=== PATIENT | female | born 1990 | race Caucasian/White ===

== ENCOUNTER → 2021-10-31 16:38 | Observation (INO) ==
[2021-10-31 13:57] LABS: Basophils % 0.4 %; Eosinophils # 0.2 K/mcL (0.0-0.6); Eosinophils % 1.8 %; Hematocrit 33.4 % (35.3-44.9); Hemoglobin 11.3 g/dL (11.5-15.4); Lymphocytes # 1.5 K/mcL (0.6-4.6); Lymphocytes % 13.8 %; Mean Corpuscular HGB Conc 33.8 g/dL (31.6-35.5); Mean Corpuscular Hemoglobin 29.9 pg (28.0-33.3); Mean Corpuscular Volume 88.4 fL (83.0-100.0); Mean Platelet Volume 9.8 fL (9.4-12.4); Monocytes # 1.1 K/mcL (0.0-1.3); Monocytes % 10.7 %; Neutrophils # 7.7 K/mcL (1.6-8.9); Platelet Count 222 K/mcL (140-400); Red Blood Count 3.78 M/mcL (3.82-4.97); Segmented Neutrophils % 72.3 %; White Blood Count 10.6 K/mcL (4.3-11.1)
[2021-10-31 14:22] LABS: Protein/Creatinine Ratio,Urine 0.11 mg/mg (0.00-0.20)
[2021-10-31 14:27] LABS: Bilirubin,Urine Negative (Negative); Blood,Urine Negative (Negative); Clarity,Urine Clear (Clear); Color,Urine Yellow (Yellow); Glucose,Urine (UA) Normal (Normal); Ketones,Urine Negative (Negative); Leukocyte Esterase,Urine Moderate (Negative); Nitrite,Urine Negative (Negative); Protein,Urine Negative (Neg-Trace); Specific Gravity,Urine 1.015 (1.010-1.025); Urobilinogen,Urine Normal (Normal)
[2021-10-31 14:31] LABS: Bacteria,Urine Moderate per hpf (None-Few); Mucus,Urine Few per lpf (None-Few); RBC,Urine 0-3 per hpf (0-3); Squamous Epithelial Cell,Urine Few per hpf (None-Few)
[2021-10-31 14:35] LABS: Alanine Aminotransferase 14 Units/L (7-52); Aspartate Amino Transferase 14 Units/L (13-39); BUN/Creatinine Ratio 17 (6-26); Blood Urea Nitrogen 9 mg/dL (6-20); Lactate Dehydrogenase 144 Units/L (140-271); Uric Acid 5.4 mg/dL (2.3-7.6); eGFR For African Americans > 60 (> 60); eGFR For Non-African Americans > 60 (> 60)
== END | disposition home or self-care (01) ==
LOC: 1NENULAB
PROVIDERS: ADMIT Registered Nurse; ATTEND Registered Nurse

== ENCOUNTER 2021-11-14 20:08 | Inpatient (IN) ==
[2021-11-14 18:58] LABS: Basophils % 0.3 %; Eosinophils # 0.2 K/mcL (0.0-0.6); Eosinophils % 1.9 %; Hematocrit 35.6 % (35.3-44.9); Hemoglobin 12.1 g/dL (11.5-15.4); Lymphocytes # 1.7 K/mcL (0.6-4.6); Lymphocytes % 14.5 %; Mean Corpuscular Hemoglobin 30.2 pg (28.0-33.3); Mean Corpuscular Volume 88.8 fL (83.0-100.0); Mean Platelet Volume 10.7 fL (9.4-12.4); Monocytes # 1.1 K/mcL (0.0-1.3); Monocytes % 9.7 %; Neutrophils # 8.3 K/mcL (1.6-8.9); Platelet Count 195 K/mcL (140-400); Red Blood Count 4.01 M/mcL (3.82-4.97); Red Cell Distribution Width 15.2 % (11.5-14.5); Segmented Neutrophils % 72.6 %; White Blood Count 11.4 K/mcL (4.3-11.1)
[2021-11-14 19:06] LABS: Protein/Creatinine Ratio,Urine 0.14 mg/mg (0.00-0.20)
[2021-11-14 19:17] LABS: Alanine Aminotransferase 12 Units/L (7-52); Aspartate Amino Transferase 13 Units/L (13-39); BUN/Creatinine Ratio 15 (6-26); Blood Urea Nitrogen 10 mg/dL (6-20); Lactate Dehydrogenase 145 Units/L (140-271); Uric Acid 5.7 mg/dL (2.3-7.6)
[~2021-11-14 20:08] MED LIST: *HR* Labetalol 20 MG/4 ML SYRINGE IVP ONE; *HR* Labetalol 20 MG/4 ML SYRINGE IVP PRN; Azithromycin 500 MG in 0.9 % Sodium Chloride 250 ML IVPB PRN; Calcium Gluconate 1,000 MG/10 ML VIAL IVP PRN; Famotidine 20 MG/2 ML VIAL IVP PRN; Metoclopramide 10 MG/2 ML VIAL IVP PRN; Naloxone 0.4 MG/ML INJ IVP PRN; Ondansetron 4 MG/2 ML VIAL IVP PRN; Penicillin G Potassium 2,500,000 UNIT/105 ML MLS IVPB SCH; Penicillin G Potassium 5,000,000 UNIT in 0.9 % Sodium Chloride Mini Bag 100 ML IVPB ONE
[2021-11-14] MEDS ORDERED: Magnesium Sulf 20 gm/SW 500mL 4 GM/100 ML BAG IV ONE (20:14)
[2021-11-14] MEDS ORDERED: Magnesium Sulf 20 gm/SW 500mL 20 GM/500 ML IV.SOLN IVC SCH (20:15)
[2021-11-14] MEDS ORDERED: Ringers Solution, Lactated 1,000 ML IVC SCH (20:15)
[2021-11-14] MEDS ORDERED: Oxytocin 30 UNIT/503 ML BAG IVC SCH (21:45)
[2021-11-14] MEDS ORDERED: Ropivacaine/PF 0.2% 20 ML VIAL EP ONE (22:19)
[2021-11-14] MEDS ORDERED: EPHEDrine 50 MG/ML VIAL IVP PRN (22:19)
[2021-11-14] MEDS ORDERED: *HR* FentaNYL (PF) 100 MCG/2 ML VIAL EP ONE (22:19)
[2021-11-14] MEDS ORDERED: Epidural Premix (fent/bupiv) 110 ML EP SCH (22:30)
[2021-11-14] MEDS ORDERED: *HR* Nalbuphine 10 MG/ML AMPUL IV PRN (23:24)
[2021-11-14] MEDS ORDERED: *HR* Nalbuphine 10 MG/ML AMPUL ONE (23:28)
[2021-11-15] MEDS ORDERED: *HR* FentaNYL (PF) 100 MCG/2 ML VIAL ONE (07:02)
[2021-11-15] MEDS ORDERED: Ringers Solution, Lactated 1,000 ML IVC ONE (07:11)
[2021-11-15] MEDS ORDERED: miSOPROStoL 100 MCG TABLET PO ONE ×3 (10:02→13:00)
[2021-11-15] MEDS ORDERED: miSOPROStoL 100 MCG TABLET PO STA (13:00)
[2021-11-15] MEDS ORDERED: Benzocaine/Menthol 56 GM AEROSOL SPRAY TP PRN (14:47)
[2021-11-15] MEDS ORDERED: Rho Immune Globulin 1,500 UNIT SYRINGE IM PRN (14:47)
[2021-11-15] MEDS ORDERED: Oxytocin 30 UNIT/503 ML BAG IVC SCH (14:47)
[2021-11-15] MEDS ORDERED: Ondansetron ODT 4 MG TAB.RAPDIS SL PRN (14:47)
[2021-11-15] MEDS: Ibuprofen 600 MG TABLET PO SCH ×2 (15:17→21:31)
[2021-11-15] MEDS: Acetaminophen 325 MG TABLET PO SCH ×2 (15:17→21:31)
[2021-11-15] MEDS: Magnesium Sulf 20 gm/SW 500mL 20 GM/500 ML IV.SOLN IVC SCH (15:37)
[2021-11-15] MEDS ORDERED: Ringers Solution, Lactated 1,000 ML ONE (17:13)
[2021-11-15] MEDS ORDERED: Calcium Gluconate 1,000 MG/10 ML VIAL ONE (17:54)
[2021-11-16] MEDS: Simethicone 80 MG TAB.CHEW PO PRN ×3 (01:48→16:54)
[2021-11-16] MEDS: Magnesium Sulf 20 gm/SW 500mL 20 GM/500 ML IV.SOLN IVC SCH (01:49)
[2021-11-16] MEDS ORDERED: Ringers Solution, Lactated 500 ML ONE (01:59)
[2021-11-16] MEDS: Ibuprofen 600 MG TABLET PO SCH ×4 (03:35→23:23)
[2021-11-16] MEDS: Acetaminophen 325 MG TABLET PO SCH ×4 (03:35→23:23)
[2021-11-16 05:51] LABS: Basophils % 0.2 %; Eosinophils # 0.2 K/mcL (0.0-0.6); Eosinophils % 1.5 %; Hematocrit 31.5 % (35.3-44.9); Immature Granulocytes % 0.5 % (0-4); Lymphocytes # 1.8 K/mcL (0.6-4.6); Lymphocytes % 13.9 %; Mean Corpuscular HGB Conc 32.7 g/dL (31.6-35.5); Mean Corpuscular Hemoglobin 29.7 pg (28.0-33.3); Mean Corpuscular Volume 90.8 fL (83.0-100.0); Mean Platelet Volume 10.9 fL (9.4-12.4); Monocytes # 1.1 K/mcL (0.0-1.3); Monocytes % 8.2 %; Platelet Count 181 K/mcL (140-400); Red Blood Count 3.47 M/mcL (3.82-4.97); Red Cell Distribution Width 15.5 % (11.5-14.5); Segmented Neutrophils % 75.7 %; White Blood Count 13.3 K/mcL (4.3-11.1)
[2021-11-16 05:54] LABS: Hemoglobin 10.3 g/dL (11.5-15.4)
[2021-11-16 06:15] LABS: Alanine Aminotransferase 9 Units/L (7-52); Aspartate Amino Transferase 14 Units/L (13-39); BUN/Creatinine Ratio 14 (6-26); Blood Urea Nitrogen 9 mg/dL (6-20); Lactate Dehydrogenase 210 Units/L (140-271); Uric Acid 5.5 mg/dL (2.3-7.6)
[2021-11-16] MEDS: Prenatal Vit/FA 1 EACH TABLET PO SCH (08:40)
[2021-11-16] MEDS: Lanolin 7 G OINT...G. TP PRN (10:50)
[2021-11-16] MEDS: NIFEdipine XL (24 HR) 30 MG TAB.ER.24 PO SCH (16:53)
[2021-11-17 04:32] VITALS: O2SAT 97
[2021-11-17] MEDS: Ibuprofen 600 MG TABLET PO SCH ×2 (04:33→10:38)
[2021-11-17] MEDS: Acetaminophen 325 MG TABLET PO SCH ×2 (04:33→10:39)
[2021-11-17 08:57] VITALS: TEMP 98
[2021-11-17] MEDS: Prenatal Vit/FA 1 EACH TABLET PO SCH (09:43)
[2021-11-17] MEDS: NIFEdipine XL (24 HR) 30 MG TAB.ER.24 PO SCH (09:43)
[2021-11-17] MEDS: Lanolin 7 G OINT...G. TP PRN (12:12)
[2021-11-17 13:28] VITALS: BP 122/71; PULSE 91
== END 2021-11-17 15:43 | disposition home or self-care (01) | DRG 805 ==
LOC: 1NENULAB → 1NENUOBS 11-15 14:44
PROVIDERS: ADMIT Obstetrics & Gynecology; ATTEND Obstetrics & Gynecology